=== PATIENT | male | born 1960 | race Two or more races ===

== ENCOUNTER 2022-05-12 13:57 | Inpatient (IN) | payer OTHER ==
[~2022-05-12] VITALS: Ht 185.4 cm; Wt 109.3 kg
[2022-05-12] MEDS ORDERED: IOHEXOL-300 100 ML VIAL IV ONE (15:25)
[2022-05-12] MEDS ORDERED: IV NS 0.9% 250 ML IV ONE (15:25)
[2022-05-12] MEDS ORDERED: PANTOPRAZOLE 40 MG VIAL IV ONE (15:30)
[2022-05-12] MEDS ORDERED: ONDANSETRON HCL/PF 4 MG/2 ML VIAL IVP ONE (15:30)
[2022-05-12] MEDS ORDERED: ONDANSETRON HCL/PF 4 MG/2 ML VIAL ONE (15:35)
[2022-05-12] MEDS ORDERED: PANTOPRAZOLE 40 MG VIAL ONE (15:35)
--- NOTE | 2022-05-12 15:43 | NUR ---
BS = 152
[2022-05-12 16:28] LABS: BASOPHILS % (AUTO) 0.2 % (0.0-2.0); HEMATOCRIT 36 % (39-51); LYMPHOCYTES # (AUTO) 1.1 K/uL (0.8-4.8); LYMPHOCYTES % (AUTO) 7.3 % (20.0-44.0); MEAN CORPUSCULAR HGB CONC 33 g/dl (31.0-36.0); MEAN CORPUSCULAR VOLUME 101 fL (80-96); MONOCYTES # (AUTO) 0.7 K/uL (0.1-1.30); MONOCYTES % (AUTO) 4.5 % (2.0-12.0); NEUTROPHILS # (AUTO) 13.3 K/uL (1.8-8.9); PLATELET COUNT (AUTO) 208 K/uL (150-450); RED BLOOD CELL COUNT(AUTO) 3.59 MIL/uL (4.5-6.0); WHITE BLOOD COUNT (AUTO) 15.1 K/uL (4.3-11.0)
[2022-05-12 17:02] LABS: ALANINE AMINOTRANSFERASE 44 U/L (12-78); ALBUMIN 3.6 g/dL (3.4-5.0); ALKALINE PHOSPHATASE 72 U/L (46-116); ASPARTATE AMINOTRANSFERASE 27 U/L (15-37); BILIRUBIN,DIRECT 0.4 mg/dL (0.0-0.2); CALCIUM, SERUM 10.4 mg/dL (8.5-10.1); CARBON DIOXIDE 32 mmol/L (21-32); CHLORIDE 96 mmol/L (98-107); GLUCOSE 190 mg/dL (74-106); LIPASE 308 U/L (73-393); POTASSIUM 3.6 mmol/L (3.5-5.1); SODIUM SERUM 141 mmol/L (136-145); TOTAL PROTEIN, SERUM 8.2 g/dL (6.4-8.2); UREA NITROGEN, BLOOD 51 mg/dL (7-18)
[2022-05-12 17:20] LABS: CREATININE 7.9 mg/dL (0.6-1.3)
[2022-05-12] MEDS ORDERED: VANCOMYCIN 1 GM in IV D5W 250 ML IV ONE (17:30)
[2022-05-12] MEDS ORDERED: CEFEPIME 1 GM in IV D5W 50 ML IV ONE (17:30)
[2022-05-12] MEDS ORDERED: CEFEPIME 1 GM VIAL ONE (17:37)
[2022-05-12] MEDS ORDERED: VANCOMYCIN 1 GM VIAL ONE (17:38)
[2022-05-12] MEDS ORDERED: APIX5TAB PO (17:39)
[2022-05-12] MEDS ORDERED: DOCU-141 PO (17:39)
[2022-05-12] MEDS ORDERED: FAMO40TA7 PO (17:39)
[2022-05-12] MEDS ORDERED: CHOL100043 PO (17:39)
[2022-05-12] MEDS ORDERED: ATOR10TA PO (17:39)
[2022-05-12] MEDS ORDERED: LEVO112T7 PO (17:39)
[2022-05-12] MEDS ORDERED: FOLI0.8T2 PO (17:39)
[2022-05-12] MEDS ORDERED: HYDR-4303 PO (17:39)
[2022-05-12] MEDS ORDERED: SEVE800T28 PO (17:39)
[2022-05-12] MEDS ORDERED: LEVE500T9 PO (17:39)
[2022-05-12] MEDS ORDERED: SERT100T PO (17:39)
[2022-05-12] MEDS ORDERED: MIDO10TA PO (17:39)
[2022-05-12] MEDS ORDERED: PANT40TA2 PO (17:39)
[2022-05-12] MEDS ORDERED: VITA1TAB56 PO (17:39)
[2022-05-12 17:41] LABS: MAGNESIUM 2.3 mg/dL (1.8-2.4); PHOSPHORUS 2.4 mg/dL (2.5-4.9)
--- NOTE | 2022-05-12 19:26 | NUR ---
COVID ANTIGEN SWAB COLLECTED AND SENT TO LAB
--- NOTE | 2022-05-12 19:27 | NUR ---
BIBRA, GENERALIZED WEAKNESS NOTED, NAUSEA AND EMESIS NOTED PRIOR TO ARRIVAL, IV GAUGE 20 RIGHT HAND AREA
--- NOTE | 2022-05-12 19:59 | NUR ---
UPDATED ROHITH (CAREGIVER) [phone]
--- NOTE | 2022-05-12 20:07 | NUR ---
LACTIC ACID 2.2; DR. NAZARIO MARTINI AWARE
[2022-05-12] MEDS ORDERED: NA PHOS,M-B/NA PHOS,DI-BA 1 EA ENEMA RC STA (20:37)
[2022-05-12] MEDS ORDERED: ACETAMINOPHEN 325 MG TABLET PO PRN (21:00)
[2022-05-12] MEDS ORDERED: METRONIDAZOLE 500MG/ NS 100ML 100 ML IV SCH (21:00)
[2022-05-12] MEDS ORDERED: LEVOFLOXACIN 750 MG /D5W 150ML 750 MG in PREMIX 1 EA IV ONE (21:00)
[2022-05-12] MEDS ORDERED: ONDANSETRON HCL/PF 4 MG/2 ML VIAL IVP PRN (21:00)
[2022-05-12] MEDS: DOCUSATE SODIUM 250 MG CAPSULE PO SCH (21:00)
--- NOTE | 2022-05-12 21:22 | NUR ---
REPORT GIVEN TO CAROLINE 3W FOR KLAUDIA
--- NOTE | 2022-05-12 21:59 | NUR ---
PT TRANSFERRED TO 324-1 VIA ACLS PROTOCOL .VSS. ALL BELONGINGS WITH PT.
[2022-05-12 22:00] VITALS: BP 113/49
[2022-05-12] MEDS ORDERED: LEVOFLOXACIN 750 MG /D5W 150ML 150 ML IV ONE (22:29)
[2022-05-12] MEDS ORDERED: METRONIDAZOLE 500MG/ NS 100ML 200 ML IV ONE (22:35)
--- NOTE | 2022-05-12 22:35 | NUR ---
RN NOTES PT ARRIVED TO UNIT VIA GURNEY. PT UNABLE TO AMBULATE TO BED. A/O X3 PAKISTANI SPEAKING CAN UNDERSTAND AND COMMUNICATE IN GERMAN NOTED PT HAS EPISODES OF FORGETFULNESS. PT PLACED ON TELE MONITOR AT THIS TIME READING SR WITH BBB 90S. PT SKIN ASSESSMENT DONE NO WOUNDS OR OPEN SKIN NOTED. PT NOTED AT 90% O2 N ROOM AIR PLACED ON 2L VIA NS SATURATING AT 95-96% TOLERATING WELL NO DISCOMFORT OR RESPIRATORY DISTRESS. PT NOTED TO HAVE HAD A MEDIUM SIZE LOOSE STOOL. PT KEPT CLEAN AND DRY. ALL DUE EMD GIVEN ORDERED AT THIS TIME. ORIENTED TO UNIT AND ROOM CALL LIGHT WITHIN REACH. TABLE WITHIN REACH BED IN LOWEST POSITION. HOB ELEVATED FOR SAFETY.SEIZURE PRECAUTIONS MAINTAINED.
[2022-05-12] MEDS ORDERED: PANTOPRAZOLE 40 MG VIAL IV SCH (23:30)
[2022-05-13] VITALS: BP 112/52
[2022-05-13] MEDS ORDERED: DEXTROSE 50%-WATER 50 ML DISP.SYRIN IV PRN (01:00)
[2022-05-13 04:00] VITALS: BP 113/49
--- NOTE | 2022-05-13 05:00 | NUR ---
RN NOTES CALLED [facility] REGARDING PT FLAGYL SCHEDULE. DUE TO PT COMING UP FROM ER LATE FIRST DOSE OF FLAGYL WAS GIVEN LATER THAT WAS SCHEDULED NEXT DOSE WAS SCHEDULED ONLY 4 HOURS AFTER FIRST DOSE HOWEVER DOSE SHOULD BE ADMINISTERED Q8HRS PER [facility] OKAY TO CHANGE SCHEDULE TO REFLECT 8HRS NEW SCHEDULE FOR NEXT DOSE IS 0900.
[2022-05-13 06:23] LABS: BASOPHILS % (AUTO) 0.2 % (0.0-2.0); EOSINOPHILS % (AUTO) 0.1 % (0.0-6.0); HEMATOCRIT 32 % (39-51); LYMPHOCYTES # (AUTO) 1.5 K/uL (0.8-4.8); LYMPHOCYTES % (AUTO) 14.1 % (20.0-44.0); MEAN CORPUSCULAR HGB CONC 34 g/dl (31.0-36.0); MEAN CORPUSCULAR VOLUME 101 fL (80-96); MONOCYTES # (AUTO) 0.7 K/uL (0.1-1.30); NEUTROPHILS # (AUTO) 8.2 K/uL (1.8-8.9); NEUTROPHILS % (AUTO) 78.6 % (43.0-81.0); PLATELET COUNT (AUTO) 170 K/uL (150-450); RED BLOOD CELL COUNT(AUTO) 3.21 MIL/uL (4.5-6.0); WHITE BLOOD COUNT (AUTO) 10.5 K/uL (4.3-11.0)
--- NOTE | 2022-05-13 06:35 | NUR ---
RN CLOSING NOTES A/O X3 CITIZEN OF [place] AND [place] SPEAKING CAN UNDERSTAND AND COMMUNICATE IN [place] NOTED PT HAS EPISODES OF FORGETFULNESS. PT PLACED ON TELE MONITOR AT THIS TIME READING SR WITH BBB 90S. LANIE 2L VIA NS SATURATING AT 95-96% TOLERATING WELL NO DISCOMFORT OR RESPIRATORY DISTRESS. PT NOTED TO HAVE TWO EPISODES OF LOOSE STOOL S/P ENEMA VERY MINIMAL OUTPUT UNABLE TO COLLECT STOOL AT THIS TIME. PT UNABLE TO PRODUCE SPUTUM FOR RESP CULTURE AT THIS TIME WELL. INSTRUCTIONS GIVEN AND CUP PLACED AT BEDSIDE.PT KEPT CLEAN AND DRY. ALL DUE MEDS GIVEN ORDERED. CALL LIGHT WITHIN REACH. TABLE WITHIN REACH BED IN LOWEST POSITION. HOB ELEVATED FOR SAFETY.SEIZURE PRECAUTIONS MAINTAINED.
[2022-05-13] MEDS: INSULIN REGULAR, HUMAN 100 UNIT/ML 3 ML VIAL SQ PRN ×2 (06:40→13:36)
[2022-05-13] MEDS: BLOOD SUGAR DIAGNOSTIC 1 EACH STRIP IN SCH ×4 (06:40→21:53)
[2022-05-13 06:48] LABS: ALBUMIN 2.9 g/dL (3.4-5.0); BILIRUBIN,TOTAL 0.7 mg/dL (0.2-1.0); CALCIUM, SERUM 9.1 mg/dL (8.5-10.1); MAGNESIUM 3.1 mg/dL (1.8-2.4); PHOSPHORUS 3.2 mg/dL (2.5-4.9); POTASSIUM 3.9 mmol/L (3.5-5.1); TOTAL PROTEIN, SERUM 7.2 g/dL (6.4-8.2)
[2022-05-13 06:51] LABS: CREATININE 8.6 mg/dL (0.6-1.3)
[2022-05-13 06:59] LABS: THYROID STIMULATING HORMONE 2.878 uIU/mL (0.358-3.74)
[2022-05-13] MEDS ORDERED: VANCOMYCIN POST DIALYSIS 500MG IV PRN ×2 (07:00)
[2022-05-13 08:00] VITALS: BP 131/78
[2022-05-13] MEDS: MIDODRINE HCL (5MG) 5 MG TABLET PO SCH ×3 (09:00→18:10)
[2022-05-13] MEDS ORDERED: PANTOPRAZOLE 40 MG TABLET.DR PO SCH (09:00)
[2022-05-13] MEDS: LEVETIRACETAM (250 MG) 250 MG TABLET PO SCH ×2 (09:00→18:09)
[2022-05-13] MEDS ORDERED: PANTOPRAZOLE 40 MG VIAL IV SCH (09:00)
[2022-05-13] MEDS ORDERED: FAMOTIDINE 10 MG TABLET PO SCH (09:00)
[2022-05-13] MEDS ORDERED: DOCUSATE SODIUM 100 MG CAPSULE PO SCH (09:00)
[2022-05-13] MEDS: DOCUSATE SODIUM 250 MG CAPSULE PO SCH ×2 (09:10→18:09)
[2022-05-13] MEDS: SERTRALINE HCL 50 MG TABLET PO SCH (09:11)
[2022-05-13] MEDS: CHOLECALCIFEROL 1,000 UNIT TABLET (VIT D3) PO SCH (09:11)
[2022-05-13] MEDS: VITAMIN B COMP W-C 1 TAB TABLET PO SCH (09:13)
[2022-05-13] MEDS: SEVELAMER CARBONATE 800 MG TABLET PO SCH ×3 (09:13→18:10)
[2022-05-13] MEDS: VIT B CMPLX 3/FA/VIT C/BIOTIN 1 TAB TABLET PO SCH (09:13)
[2022-05-13] MEDS: LEVOTHYROXINE SODIUM 112 MCG TABLET PO SCH (09:14)
[2022-05-13] MEDS: PANTOPRAZOLE 40 MG TABLET.DR PO SCH ×2 (09:14→18:10)
[2022-05-13] MEDS: APIXABAN 5 MG TABLET PO SCH (09:17)
[2022-05-13] MEDS: METRONIDAZOLE 500MG/ NS 100ML 100 ML IV SCH ×3 (09:20→20:48)
[2022-05-13] MEDS: FAMOTIDINE (20 MG) 20 MG TABLET PO SCH (10:20)
[2022-05-13 12:00] VITALS: BP 150/77
[2022-05-13 16:00] VITALS: BP 107/69
--- NOTE | 2022-05-13 18:55 | NUR ---
BANK CONSULTANT CLOSING NOTE PATIENT RECEIVED IN BED AND AWAKE. A/O X4; FILIP[place] AND ARMENIAN SPEAKING. REMAINS BEDRIDDEN AND INCONTINENT. NO BOWEL MOVEMENT ON SHIFT. IV ACCESS TO RIGHT HAND INTACT AND PATENT. RECEIVED TWO DOSES OF IV FLAGYL ON SHIFT. TOLERATED WELL; NO ADVERSE REACTIONS TO MEDICATION OBSERVED OR REPORTED. VITAL SIGNS STABLE ON SHIFT. BLOOD SUGAR LEVELS WERE 149 & 114. RECEIVED 3UNITS OF INSULIN COVERAGE FOR READING OF 149. TOLERATED ALL MEALS AND MEDICATIONS WELL. RIGHT SIDE CONTINUES TO HAVE WEAKNESS; NO DISTRESS OR C/O PAIN TO AFFECTED AREA. SAFETY MEASURES INTACT. BED IN LOWEST POSITION AND LOCKED. SIDERAIL UP X2 WITH CALL LIGHT AND PHONE WITHIN REACH.
--- NOTE | 2022-05-13 19:27 | NUR ---
CLOTH NEUTRALIZER OPENING NOTE PATIENT RECEIVED IN BED AND AWAKE. A/O X4; HAITIAN AND ENGLISH SPEAKING. REMAINS BEDRIDDEN AND INCONTINENT. RIGHT SIDE CONTINUES TO HAVE WEAKNESS; NO DISTRESS OR C/O PAIN TO AFFECTED AREA. SAFETY MEASURES INTACT. BED IN LOWEST POSITION AND LOCKED. SIDE RAILS UP X2 WITH CALL LIGHT AND PHONE WITHIN REACH.
[2022-05-13 20:00] VITALS: BP 133/77
[2022-05-13] MEDS ORDERED: ATORVASTATIN 10 MG TABLET PO SCH (22:00)
--- NOTE | 2022-05-13 22:00 | NUR ---
RN NOTE BS 149 PT REFUSED COVERAGE AT THIS TIME PER PT " I ONLY TAKE INSULIN WITH MEALS. RISK AND BENEFITS EXPLAINED X3 REFUSED X3
[2022-05-14] VITALS: BP 150/76
[2022-05-14] MEDS: METRONIDAZOLE 500MG/ NS 100ML 100 ML IV SCH ×2 (05:06→13:44)
--- NOTE | 2022-05-14 06:54 | NUR ---
CLINICAL PROJECT ASSISTANT CLOSING NOTE PATIENT RECEIVED IN BED AND AWAKE. A/O X4; GABONESE AND FRENCH SPEAKING. REMAINS BEDRIDDEN AND INCONTINENT. RIGHT SIDE CONTINUES TO HAVE WEAKNESS; NO DISTRESS OR C/O PAIN TO AFFECTED AREA. WAS NOT ABLE TO COLLECT STOOL PT HAD VERY MINIMAL STOOL WILL ENDORSE TO DAY SHIFT NURSE.SAFETY MEASURES INTACT. BED IN LOWEST POSITION AND LOCKED. SIDE RAILS UP X2 WITH CALL LIGHT AND PHONE WITHIN REACH.
[2022-05-14] MEDS: BLOOD SUGAR DIAGNOSTIC 1 EACH STRIP IN SCH ×2 (07:16→11:45)
[2022-05-14] MEDS: INSULIN REGULAR, HUMAN 100 UNIT/ML 3 ML VIAL SQ PRN ×2 (07:16→11:46)
--- NOTE | 2022-05-14 07:30 | NUR ---
HOT WOUND SPRING PRODUCTION SUPERVISOR OPENING NOTES RECEIVED PATIENT ON BED AWAKE AND A/O X4, [place] SPEAKING. ON O2 AT 2LPM VIA NASAL CANNULA TOLERATING WELL. NO SOB NOTED. NOT IN DISTRESS. WITH NO COMPLAINTS OF PAIN OR DISCOMFORT AT THIS TIME. WITH IV ACCESS AT RIGHT AC G20 AND AT RIGHT HAND G20 SALINE LOCKED, PATENT AND INTACT. WITH LEFT UPPER ARM FISTULA FOR HD INTACT. ON TELE MONITOR CURRENTLY READING SINUS RHYTHM AT 90BPM WITH BBBs. SAFETY MEASURES IN PLACED. CALL LIGHT WITHIN REACH. BED ON LOWEST LOCKED POSITION, SIDE RAILS UP X2. WILL CONTINUE TO MONITOR.
[2022-05-14 07:40] LABS: BASOPHILS % (AUTO) 0.6 % (0.0-2.0); EOSINOPHILS % (AUTO) 0.6 % (0.0-6.0); HEMATOCRIT 31 % (39-51); HEMOGLOBIN 10.7 g/dL (13.5-17.5); LYMPHOCYTES # (AUTO) 1.5 K/uL (0.8-4.8); LYMPHOCYTES % (AUTO) 19.4 % (20.0-44.0); MEAN CORPUSCULAR HGB CONC 35 g/dl (31.0-36.0); MEAN CORPUSCULAR VOLUME 101 fL (80-96); MONOCYTES # (AUTO) 0.5 K/uL (0.1-1.30); MONOCYTES % (AUTO) 6.3 % (2.0-12.0); NEUTROPHILS # (AUTO) 5.8 K/uL (1.8-8.9); NEUTROPHILS % (AUTO) 73.1 % (43.0-81.0); PLATELET COUNT (AUTO) 168 K/uL (150-450); RED BLOOD CELL COUNT(AUTO) 3.07 MIL/uL (4.5-6.0); WHITE BLOOD COUNT (AUTO) 7.9 K/uL (4.3-11.0)
[2022-05-14 08:00] VITALS: BP 173/90
[2022-05-14 08:15] LABS: CALCIUM, SERUM 9.3 mg/dL (8.5-10.1); MAGNESIUM 2.9 mg/dL (1.8-2.4); PHOSPHORUS 3.3 mg/dL (2.5-4.9); POTASSIUM 3.6 mmol/L (3.5-5.1)
[2022-05-14] MEDS ORDERED: LEVO500T90 PO (08:35)
[2022-05-14] MEDS: SEVELAMER CARBONATE 800 MG TABLET PO SCH ×2 (08:49→13:44)
[2022-05-14] MEDS: DOCUSATE SODIUM 250 MG CAPSULE PO SCH (08:50)
[2022-05-14] MEDS: LEVETIRACETAM (250 MG) 250 MG TABLET PO SCH (08:50)
[2022-05-14] MEDS: VITAMIN B COMP W-C 1 TAB TABLET PO SCH (08:50)
[2022-05-14] MEDS: PANTOPRAZOLE 40 MG TABLET.DR PO SCH (08:50)
[2022-05-14] MEDS: LEVOTHYROXINE SODIUM 112 MCG TABLET PO SCH (08:50)
[2022-05-14] MEDS: SERTRALINE HCL 50 MG TABLET PO SCH (08:50)
[2022-05-14] MEDS: CHOLECALCIFEROL 1,000 UNIT TABLET (VIT D3) PO SCH (08:50)
[2022-05-14] MEDS: VIT B CMPLX 3/FA/VIT C/BIOTIN 1 TAB TABLET PO SCH (08:50)
[2022-05-14] MEDS: FAMOTIDINE (20 MG) 20 MG TABLET PO SCH (08:51)
[2022-05-14] MEDS: APIXABAN 5 MG TABLET PO SCH (08:51)
[2022-05-14] MEDS: MIDODRINE HCL (5MG) 5 MG TABLET PO SCH ×2 (08:52→13:00)
[2022-05-14 08:55] LABS: CREATININE 9.3 mg/dL (0.6-1.3)
[2022-05-14 13:00] VITALS: BP 132/77
--- NOTE | 2022-05-14 16:25 | NUR ---
AIR BRUSH DECORATOR NOTES PATIENT IS FOR DISCHARGE PER DOCTOR'S ORDER. DISCHARGE INSTRUCTION PROVIDED TO PATIENT. PATIENT VERBALIZED UNDERSTANDING. DISCHARGE FORM AND BELONGINGS LIST SIGNED BY PATIENT. IV LINE AND NAME WRIST BAND REMOVED. PATIENT WAS PICKED UP BY AMBULANCE PERSONNEL IN STABLE CONDITION. MD AND KODY NURSE ARE AWARE OF THE DISCHARGE.
[2022-05-14] MEDS ORDERED: LEVOFLOXACIN 750 MG /D5W 150ML 150 ML IV SCH (22:00)
== END 2022-05-14 16:30 | disposition home or self-care (01) | DRG 871 ==
LOC: ER 14:00 → TELE 21:01
PROVIDERS: ADMIT Registered Nurse; ATTEND Nurse Practitioner Acute Care
DX: A41.9 Sepsis, unspecified organism (principal); N18.6 End stage renal disease; I12.0 Hypertensive chronic kidney disease with stage 5 chronic kidney disease or end stage renal disease; E87.2 Acidosis; J98.11 Atelectasis; E11.22 Type 2 diabetes mellitus with diabetic chronic kidney disease; R65.20 Severe sepsis without septic shock; Z86.73 Personal history of transient ischemic attack (TIA), and cerebral infarction without residual deficits; G40.909 Epilepsy, unspecified, not intractable, without status epilepticus; Z79.01 Long term (current) use of anticoagulants; Z79.899 Other long term (current) drug therapy; E03.9 Hypothyroidism, unspecified; K21.9 Gastro-esophageal reflux disease without esophagitis; K52.89 Other specified noninfective gastroenteritis and colitis; M89.8X9 Other specified disorders of bone, unspecified site; K56.41 Fecal impaction; D63.8 Anemia in other chronic diseases classified elsewhere; K80.20 Calculus of gallbladder without cholecystitis without obstruction; K82.9 Disease of gallbladder, unspecified; Z68.32 Body mass index [BMI] 32.0-32.9, adult; E66.9 Obesity, unspecified; Z83.3 Family history of diabetes mellitus; Z99.2 Dependence on renal dialysis; Z20.822 Contact with and (suspected) exposure to COVID-19
CPT/HCPCS: 36415; 71045-TC; 80048-TC; 80053-TC; 80076-TC; 80177; 80202-TC; 82962-TC; 83605-TC; 83690-TC; 83735-TC; 84100-TC; 84443-TC; 84484-TC; 85025-TC; 85730-TC; 86850-TC; 87040-TC; A4216; C9113; C9803; G0378; J0692; J1815; J1956; J2405; J3370; J7050; J7060; Q9967